=== PATIENT | female | born 1945 | race Hispanic/Latino ===

== ENCOUNTER 2018-08-25 09:30 | Outpatient (CLI) | payer MEDICARE ==
[2018-08-25 09:59] LABS: Estimated GFR-MDRD - POC Greater than 90
[2018-08-25] MEDS ORDERED: ISOVUE-370 76%-LOCM 1 ML ONE (10:43)
--- NOTE | 2018-08-25 11:47 | CT ---
CT ABDOMEN AND PELVIS WITH ORAL AND IV CONTRAST: Date: 08/25/18 HISTORY: Cirrhosis of the liver, left lower quadrant pain, epigastric pain. COMPARISON: 08/09/14. FINDINGS: The lung bases are unremarkable. Nodular contour of the liver consistent with cirrhosis is again seen . No focal mass or abnormal biliary ductal dilatation is noted. A small recanalized periumbilical vei n is again seen. There is decreased attenuation of the liver compared to the spleen consistent with f atty infiltration. No calcified gallstones are seen. The spleen measures 14.5 cm in length. The pancr eas, adrenal glands, and kidneys appear normal. No free air or lymphadenopathy is seen. A tiny amount of free fluid is seen in the pelvis. Uterus is present. The small bowel loops are not abnormally dilated. There are vascular calcifications without evidence of aneurysmal dilatation of the abdominal aorta. There are degenerative changes I the spine. There ar e small, fat-containing inguinal hernia bilaterally. A calcified uterine fibroid is again seen. IMPRESSION: 1. Cirrhosis of the liver with fatty infiltration. No hepatic mass. 2. Splenomegaly. 3. Uterine fibroid. POS: [facility]
== END 2018-08-25 09:31 | disposition home or self-care (01) ==
LOC: BICCT 09:30
PROVIDERS: ATTEND Physician Assistant Medical
DX: K74.60 Unspecified cirrhosis of liver (principal); R10.32 Left lower quadrant pain; R16.1 Splenomegaly, not elsewhere classified; D25.9 Leiomyoma of uterus, unspecified
CPT/HCPCS: 74177; 82565; Q9966

== ENCOUNTER 2022-03-27 05:19 | Observation (INO) | payer MEDICARE, OTHER ==
[2022-03-27] MEDS ORDERED: Oxymetazoline HCl 0.05% (30 ML BOT) ONE (05:46)
[2022-03-27 06:25] LABS: ALT (SGPT) 32 U/L (8-55); AST (SGOT) 38 U/L (5-34); Albumin 3.3 g/dL (3.4-4.8); Alkaline Phosphatase 79 U/L (40-110); Anion Gap 16 mmol/L (10-20); BUN (Urea Nitrogen) 12 mg/dL (9.8-20.1); Bilirubin, Total 1.4 mg/dL (0.2-1.2); Calc. Creatinine Clearance 0 mL/min (70-130); Calcium 8.9 mg/dL (7.8-10.44); Carbon Dioxide 23 mmol/L (23-31); Chloride 102 mmol/L (98-107); Estimated GFR 89; Globulin 3.5 g/dL (2.4-3.5); Glucose 192 mg/dL (83-110); Potassium 4.1 mmol/L (3.5-5.1); Protein, Total 6.8 g/dL (5.8-8.1); Sodium 137 mmol/L (136-145)
[2022-03-27 07:25] LABS: INR-International Normal Ratio 1.1; PTT 24.3 sec (22.9-36.1); Prothrombin Time 14.5 sec (12.0-14.7)
[2022-03-27 07:56] LABS: #Lymphocytes 1.1 thou/uL (1.20-3.40); #Monocytes 0.7 thou/uL (0.11-0.59); #Neutrophils 3.6 thou/uL (1.40-6.50); %Basophils 0.5 % (0.0-1.0); %Eosinophils 0.8 % (0.0-10.0); %Lymphocytes 19.7 % (21.0-51.0); %Monocytes 12.2 % (0.0-10.0); %Neutrophils 66.9 % (42.0-75.0); Hemoglobin 10.8 g/dL (12.0-16.0); Mean Corpuscular HGB CONC 35.2 g/dL (32.0-36.0); Mean Corpuscular Volume 88.2 fl (78.0-98.0); RBC Distribution Width 12.9 % (11.5-14.5); Red Blood Cell (RBC) Count 3.47 mill/uL (4.20-5.40); White Blood Cell (WBC) Count 5.4 10x3/uL (4.8-10.8)
[2022-03-27 08:21] LABS: Mean Platelet Volume 10.7 fL (7.4-10.4); Platelet Count 15 10x3/uL (130-400); Platelet Morphology Comment Appears Decreased; RBC Morphology Normal; Reflex for Review?? YES
[2022-03-27 10:30] LABS: Hemoglobin 10.9 g/dL (12.0-16.0); Mean Corpuscular HGB CONC 35.3 g/dL (32.0-36.0); Mean Corpuscular Hemoglobin 31.2 pg (27.0-31.0); Mean Corpuscular Volume 88.3 fl (78.0-98.0); Mean Platelet Volume 10.9 fL (7.4-10.4); Platelet Count 19 10x3/uL (130-400); RBC Distribution Width 12.9 % (11.5-14.5); Red Blood Cell (RBC) Count 3.49 mill/uL (4.20-5.40); White Blood Cell (WBC) Count 5.4 10x3/uL (4.8-10.8)
[2022-03-27 10:34] LABS: #Lymphocytes 1.1 thou/uL (1.20-3.40); #Monocytes 0.6 thou/uL (0.11-0.59); #Neutrophils 3.7 thou/uL (1.40-6.50); %Basophils 0.2 % (0.0-1.0); %Eosinophils 0.8 % (0.0-10.0); %Lymphocytes 20.9 % (21.0-51.0); %Monocytes 10.8 % (0.0-10.0); %Neutrophils 67.2 % (42.0-75.0); Platelet Morphology Comment Appears Adequate; RBC Morphology Normal
[2022-03-27] MEDS ORDERED: HumaLOG 300 UNITS/3 ML VIAL SC PRN ×2 (11:38)
[2022-03-27] MEDS ORDERED: Dextrose 50% Abboject 50 ML SYRINGE SLOW IVP PRN (11:38)
[2022-03-27] MEDS ORDERED: Dextrose 5% in Water 1,000 ML IV PRN (11:38)
[2022-03-27] MEDS ORDERED: Ondansetron PF 4 MG/2 ML Vial IVP PRN (11:41)
[2022-03-27] MEDS ORDERED: Acetaminophen 325 MG TAB PO PRN (11:41)
[2022-03-27] MEDS ORDERED: Ondansetron ODT 4 MG TAB PO PRN (11:41)
[2022-03-27 12:52] LABS: #Lymphocytes 1.1 thou/uL (1.20-3.40); #Monocytes 0.7 thou/uL (0.11-0.59); #Neutrophils 3.7 thou/uL (1.40-6.50); %Basophils 0.1 % (0.0-1.0); %Eosinophils 0.7 % (0.0-10.0); %Lymphocytes 20.6 % (21.0-51.0); %Neutrophils 66.6 % (42.0-75.0); Hemoglobin 10.9 g/dL (12.0-16.0); Mean Corpuscular HGB CONC 34.5 g/dL (32.0-36.0); Mean Corpuscular Hemoglobin 30.6 pg (27.0-31.0); Mean Corpuscular Volume 88.6 fl (78.0-98.0); Platelet Count 19 10x3/uL (130-400); RBC Distribution Width 13.1 % (11.5-14.5); Red Blood Cell (RBC) Count 3.55 mill/uL (4.20-5.40); White Blood Cell (WBC) Count 5.5 10x3/uL (4.8-10.8)
[2022-03-27 13:25] VITALS: BMI 25.0
[2022-03-28 06:25] LABS: Hemoglobin 10.4 g/dL (12.0-16.0); Mean Corpuscular HGB CONC 34.8 g/dL (32.0-36.0); Mean Corpuscular Hemoglobin 30.7 pg (27.0-31.0); Mean Corpuscular Volume 88.3 fl (78.0-98.0); Mean Platelet Volume 10.1 fL (7.4-10.4); Platelet Count 36 10x3/uL (130-400); RBC Distribution Width 12.7 % (11.5-14.5); White Blood Cell (WBC) Count 4.8 10x3/uL (4.8-10.8)
[2022-03-28 06:27] LABS: Anion Gap 12 mmol/L (10-20); BUN (Urea Nitrogen) 10 mg/dL (9.8-20.1); Calc. Creatinine Clearance 67 mL/min (70-130); Carbon Dioxide 29 mmol/L (23-31); Chloride 104 mmol/L (98-107); Estimated GFR 88; Glucose 123 mg/dL (83-110); Potassium 3.7 mmol/L (3.5-5.1); Sodium 141 mmol/L (136-145)
[2022-03-28 06:43] LABS: Band 1 % (5-11); Lymphocytes 25 % (21-51); MDiff Complete? YES; Monocytes 16 % (0-10); Neutrophil 58 % (42-75); Platelet Morphology Comment Appears Decreased
[2022-03-28 12:26] VITALS: BP 125/75; TEMP 97.6
== END 2022-03-28 16:55 | disposition home or self-care (01) ==
LOC: ERS 05:19 → ERHOLD 11:24 → INTOOBSV 11:24 → MSONC 18:11
PROVIDERS: ADMIT Internal Medicine; ATTEND Internal Medicine
DX: D69.6 Thrombocytopenia, unspecified (principal); C56.9 Malignant neoplasm of unspecified ovary; D63.0 Anemia in neoplastic disease; E11.9 Type 2 diabetes mellitus without complications; K76.0 Fatty (change of) liver, not elsewhere classified; K74.60 Unspecified cirrhosis of liver; R04.0 Epistaxis; Z87.891 Personal history of nicotine dependence; Z79.84 Long term (current) use of oral hypoglycemic drugs; Z20.822 Contact with and (suspected) exposure to COVID-19
CPT/HCPCS: 36430; 80048; 80053; 82962 ×2; 85025 ×3; 85610; 85730; 86850; 86900; 86901; 99284; P9035; U0003; U0005; 36415; 36416; 85060; G0378; J1642

== ENCOUNTER 2023-04-07 11:24 | Day surgery (SDC) | payer OTHER ==
[2023-04-07 11:40] LABS: INR-International Normal Ratio 1.2; PTT 29.9 sec (22.9-36.1)
[2023-04-07] MEDS ORDERED: Lidocaine 1% PF 5 ML VIAL ONE (12:43)
[2023-04-07 14:00] VITALS: BP 138/74
== END 2023-04-07 13:35 | disposition home or self-care (01) ==
LOC: ULT 11:24
PROVIDERS: ATTEND Internal Medicine Hematology & Oncology
PROC: 0W9G3ZZ Drainage of Peritoneal Cavity, Percutaneous Approach (ICD-10-PCS; principal; 2023-04-07)
DX: R18.8 Other ascites (principal); C56.2 Malignant neoplasm of left ovary; Z90.710 Acquired absence of both cervix and uterus; Z79.899 Other long term (current) drug therapy
CPT/HCPCS: 49083; 85610; 85730

== ENCOUNTER 2023-04-12 15:17 | Observation (INO) | payer OTHER ==
[2023-04-12 16:48] LABS: #Eosinphils 0.1 thou/uL (0.0-0.7); #Monocytes 1.1 thou/uL (0.11-0.59); #Neutrophils 5.5 thou/uL (1.40-6.50); %Basophils 0.3 % (0.0-1.0); %Eosinophils 0.9 % (0.0-10.0); %Lymphocytes 14.9 % (21.0-51.0); %Monocytes 13.3 % (0.0-10.0); %Neutrophils 69.8 % (42.0-75.0); Hematocrit 33.9 % (36.0-47.0); Hemoglobin 10.7 g/dL (12.0-16.0); Mean Corpuscular HGB CONC 31.6 g/dL (32.0-36.0); Mean Corpuscular Hemoglobin 28.1 pg (27.0-31.0); Mean Platelet Volume 12.3 fL (7.4-10.4); Platelet Count 156 10x3/uL (130-400); RBC Distribution Width 17.4 % (11.5-14.5); Red Blood Cell (RBC) Count 3.81 mill/uL (4.20-5.40); White Blood Cell (WBC) Count 7.9 10x3/uL (4.8-10.8)
[2023-04-12 17:18] LABS: ALT (SGPT) 11 U/L (8-55); AST (SGOT) 17 U/L (5-34); Albumin 3.4 g/dL (3.4-4.8); Alkaline Phosphatase 54 U/L (40-110); Anion Gap 18 mmol/L (10-20); BUN (Urea Nitrogen) 15 mg/dL (9.8-20.1); Calc. Creatinine Clearance 0 mL/min (70-130); Calcium 8.5 mg/dL (7.8-10.44); Carbon Dioxide 25 mmol/L (23-31); Chloride 99 mmol/L (98-107); Estimated GFR 77; Globulin 3.2 g/dL (2.4-3.5); Glucose 129 mg/dL (83-110); Lipase 47 U/L (8-78); Potassium 3.6 mmol/L (3.5-5.1); Protein, Total 6.6 g/dL (5.8-8.1); Sodium 138 mmol/L (136-145)
[2023-04-12 20:26] LABS: INR-International Normal Ratio 1.1; PTT 29.9 sec (22.9-36.1); Prothrombin Time 14.6 sec (12.0-14.7)
[2023-04-12 20:52] LABS: Troponin I Less than 0.010 ng/mL (< 0.028)
[2023-04-12] MEDS ORDERED: Calcium Carbonate 500 MG ChewTAB PO PRN (21:45)
[2023-04-12] MEDS ORDERED: Acetaminophen 325 MG TAB PO PRN (21:45)
[2023-04-12] MEDS ORDERED: Ondansetron ODT 4 MG TAB PO PRN (21:45)
[2023-04-12] MEDS ORDERED: Senokot S 8.6-50 MG TAB PO PRN (21:45)
[2023-04-13 04:23] LABS: #Eosinphils 0.1 thou/uL (0.0-0.7); #Monocytes 0.8 thou/uL (0.11-0.59); #Neutrophils 4.5 thou/uL (1.40-6.50); %Basophils 0.2 % (0.0-1.0); %Eosinophils 1.5 % (0.0-10.0); %Lymphocytes 15.6 % (21.0-51.0); %Neutrophils 69.1 % (42.0-75.0); Hematocrit 29.9 % (36.0-47.0); Hemoglobin 9.5 g/dL (12.0-16.0); Mean Corpuscular HGB CONC 31.8 g/dL (32.0-36.0); Mean Corpuscular Hemoglobin 28.3 pg (27.0-31.0); Mean Platelet Volume 11.7 fL (7.4-10.4); Platelet Count 139 10x3/uL (130-400); RBC Distribution Width 17.3 % (11.5-14.5); Red Blood Cell (RBC) Count 3.36 mill/uL (4.20-5.40); White Blood Cell (WBC) Count 6.5 10x3/uL (4.8-10.8)
[2023-04-13 05:53] LABS: Chloride 103 mmol/L (98-107); Potassium 3.8 mmol/L (3.5-5.1); Sodium 138 mmol/L (136-145)
[2023-04-13 05:54] LABS: Globulin 2.9 g/dL (2.4-3.5); Glucose 138 mg/dL (83-110); Protein, Total 5.9 g/dL (5.8-8.1)
[2023-04-13 05:56] LABS: Anion Gap 15 mmol/L (10-20); Carbon Dioxide 24 mmol/L (23-31)
[2023-04-13 05:57] LABS: Alkaline Phosphatase 42 U/L (40-110); Calc. Creatinine Clearance 67 mL/min (70-130); Estimated GFR 86
[2023-04-13 05:58] LABS: BUN (Urea Nitrogen) 16 mg/dL (9.8-20.1)
[2023-04-13 05:59] LABS: AST (SGOT) 16 U/L (5-34)
[2023-04-13 06:00] LABS: ALT (SGPT) 10 U/L (8-55)
[2023-04-13] MEDS ORDERED: metFORMIN 500 MG TAB PO SCH (08:00)
[2023-04-13] MEDS ORDERED: Empagliflozin 25 MG TAB PO SCH (09:00)
[2023-04-13] MEDS ORDERED: Alogliptin 25 MG TAB PO SCH ×2 (09:00)
[2023-04-13] MEDS ORDERED: Famotidine 20 MG TAB PO SCH (09:00)
[2023-04-13] MEDS ORDERED: Semaglutide [Rybelsus] 3 MG Tab PO SCH (09:00)
[2023-04-13 09:22] VITALS: BP 117/55; TEMP 98.2
[2023-04-13] MEDS ORDERED: Lidocaine 1% PF 5 ML VIAL ONE (10:37)
[2023-04-14 17:09] LABS: RBC Count-Automated (BF) 27806 /cu.mm; WBC/Nucleated-Auto (BF) 359 /cu.mm
[2023-04-14 17:16] LABS: Body Fluid Source Paracentesis Fluid; Clarity Cloudy/Turbid (Clear); Tube # EDTA
[2023-04-14 17:17] LABS: BF Color Pink
[2023-04-14 17:33] LABS: BF Segmented Neutrophils 13 %; Cell Count Non Hematic 50 %; Lymphocytes 37 %
[2023-04-14 17:34] LABS: Fluid, Glucose 150 mg/dL (Not Available); Fluid, LDH 169 U/L (Not Available)
== END 2023-04-13 15:17 | disposition home or self-care (01) ==
LOC: ERS 15:17 → ERHOLD 20:47 → T4-A 04-13 08:08
PROVIDERS: ADMIT Student in an Organized Health Care Education/Training Program; ATTEND Internal Medicine
PROC: 0W9G30Z Drainage of Peritoneal Cavity with Drainage Device, Percutaneous Approach (ICD-10-PCS; principal; 2023-04-12)
DX: K74.60 Unspecified cirrhosis of liver (principal); R18.8 Other ascites; E11.9 Type 2 diabetes mellitus without complications; K80.20 Calculus of gallbladder without cholecystitis without obstruction; C56.9 Malignant neoplasm of unspecified ovary; Z79.84 Long term (current) use of oral hypoglycemic drugs; Z79.899 Other long term (current) drug therapy
CPT/HCPCS: 49083; 76705; 80053 ×2; 82945; 83615; 83690; 84157; 84484; 85025 ×2; 85610; 85730; 87070; 87205; 89051; 93005; 99285; G0378 ×3; 36415; 85060

== ENCOUNTER → 2023-09-16 | Day surgery (SDC) | payer OTHER | LOC: ULT 12:40 | PROVIDERS: ATTEND Internal Medicine Hematology & Oncology | DX: R18.8 Other ascites (principal); C56.2 Malignant neoplasm of left ovary; E11.9 Type 2 diabetes mellitus without complications; Z79.899 Other long term (current) drug therapy; Z79.84 Long term (current) use of oral hypoglycemic drugs; Z90.710 Acquired absence of both cervix and uterus | CPT/HCPCS: 76705 ==

== ENCOUNTER → 2024-02-17 | Day surgery (SDC) | payer OTHER ==
[~2024-02-17] MED LIST: Lidocaine 1% PF 5 ML VIAL ONE; Sodium Bicarbonate 2.5 MEQ/5 ML SDV ONE
[2024-02-17 13:59] LABS: INR-International Normal Ratio 1.2; PTT 30.8 sec (22.9-36.1); Prothrombin Time 14.9 sec (12.0-14.7)
[2024-02-17 14:05] LABS: #Basophils Less than 0.03 10x3/uL (0.0-0.2); %Basophils 0.4 % (0.0-1.0); %Eosinophils 1.9 % (0.0-10.0); %Lymphocytes 20.3 % (21.0-51.0); %Monocytes 13.8 % (0.0-10.0); %Neutrophils 62.5 % (42.0-75.0); Hemoglobin 12.3 g/dL (12.0-16.0); Mean Corpuscular HGB CONC 33.2 g/dL (32.0-36.0); Mean Corpuscular Hemoglobin 30.8 pg (27.0-31.0); Mean Corpuscular Volume 92.5 fL (78.0-98.0); Mean Platelet Volume 12.2 fL (7.4-10.4); Platelet Count 126 10x3/uL (130-400); RBC Distribution Width 17.2 % (11.5-14.5)
== END ==
LOC: ULT 13:32
PROVIDERS: ATTEND Internal Medicine Hematology & Oncology
PROC: 0W9G30Z Drainage of Peritoneal Cavity with Drainage Device, Percutaneous Approach (ICD-10-PCS; principal; 2024-02-17)
DX: R18.8 Other ascites (principal); C56.2 Malignant neoplasm of left ovary; D69.6 Thrombocytopenia, unspecified; Z79.899 Other long term (current) drug therapy; E11.9 Type 2 diabetes mellitus without complications; K74.60 Unspecified cirrhosis of liver; Z90.710 Acquired absence of both cervix and uterus; Z87.891 Personal history of nicotine dependence; Z79.84 Long term (current) use of oral hypoglycemic drugs
CPT/HCPCS: 36415; 49083; 85025; 85610; 85730

== ENCOUNTER 2024-02-29 14:04 | Day surgery (SDC) | payer OTHER ==
[2024-02-29] MEDS ORDERED: Lidocaine 1% PF 5 ML VIAL ONE (14:46)
[2024-02-29 15:24] VITALS: TEMP 97.9
== END 2024-02-29 16:20 | disposition home or self-care (01) ==
LOC: ULT 14:04
PROVIDERS: ATTEND Internal Medicine Hematology & Oncology
PROC: 0W9G30Z Drainage of Peritoneal Cavity with Drainage Device, Percutaneous Approach (ICD-10-PCS; principal; 2024-02-29)
DX: R18.8 Other ascites (principal); K76.0 Fatty (change of) liver, not elsewhere classified; C56.2 Malignant neoplasm of left ovary; E11.9 Type 2 diabetes mellitus without complications; D64.9 Anemia, unspecified; Z79.899 Other long term (current) drug therapy
CPT/HCPCS: 49083

== ENCOUNTER 2024-03-29 08:30 | Emergency (ER) | payer OTHER ==
[2024-03-29 10:02] LABS: INR-International Normal Ratio 1.1; PTT 30.4 sec (22.9-36.1); Prothrombin Time 14.4 sec (12.0-14.7)
[2024-03-29 10:03] LABS: ALT (SGPT) 22 U/L (8-55); AST (SGOT) 27 U/L (5-34); Albumin 3.1 g/dL (3.4-4.8); Alkaline Phosphatase 72 U/L (40-110); Anion Gap 12 mmol/L (10-20); BUN (Urea Nitrogen) 16 mg/dL (9.8-20.1); Bilirubin, Total 0.8 mg/dL (0.2-1.2); Calc. Creatinine Clearance 0 mL/min (70-130); Calcium 8.7 mg/dL (7.8-10.44); Carbon Dioxide 26 mmol/L (23-31); Chloride 104 mmol/L (98-107); Estimated GFR 91; Globulin 3.5 g/dL (2.4-3.5); Glucose 151 mg/dL (83-110); Potassium 4.1 mmol/L (3.5-5.1); Protein, Total 6.6 g/dL (5.8-8.1); Sodium 138 mmol/L (136-145)
[2024-03-29 10:05] LABS: #Basophils Less than 0.03 10x3/uL (0.0-0.2); %Basophils 0.3 % (0.0-1.0); %Lymphocytes 18.9 % (21.0-51.0); %Monocytes 15.3 % (0.0-10.0); %Neutrophils 62.7 % (42.0-75.0); Hematocrit 32.7 % (36.0-47.0); Hemoglobin 10.6 g/dL (12.0-16.0); Mean Corpuscular HGB CONC 32.4 g/dL (32.0-36.0); Mean Corpuscular Hemoglobin 29.4 pg (27.0-31.0); Mean Corpuscular Volume 90.8 fL (78.0-98.0); Mean Platelet Volume 12.1 fL (7.4-10.4); Platelet Count 81 10x3/uL (130-400); RBC Distribution Width 18.6 % (11.5-14.5)
== END 2024-03-29 13:46 | disposition home or self-care (01) ==
LOC: ERS 08:30
DX: R18.8 Other ascites (principal); R06.02 Shortness of breath; E11.9 Type 2 diabetes mellitus without complications; Z55.6 Problems related to health literacy
CPT/HCPCS: 36415; 49083; 80053; 85025; 85610; 85730

== ENCOUNTER 2024-04-05 13:09 | Day surgery (SDC) | payer OTHER ==
[2024-04-05] MEDS ORDERED: Sodium Bicarbonate 2.5 MEQ/5 ML SDV ONE (13:36)
[2024-04-05] MEDS ORDERED: Lidocaine 1% PF 5 ML VIAL ONE (13:36)
== END 2024-04-05 15:00 | disposition home or self-care (01) ==
LOC: ULT 13:09
PROVIDERS: ATTEND Internal Medicine Hematology & Oncology
PROC: 0W9G30Z Drainage of Peritoneal Cavity with Drainage Device, Percutaneous Approach (ICD-10-PCS; principal; 2024-04-05)
DX: C56.2 Malignant neoplasm of left ovary (principal); R18.8 Other ascites
CPT/HCPCS: 49083

== ENCOUNTER 2024-04-19 09:42 | Emergency (ER) | payer OTHER ==
[2024-04-19 11:19] LABS: #Basophils Less than 0.03 10x3/uL (0.0-0.2); %Basophils 0.3 % (0.0-1.0); %Lymphocytes 21.6 % (21.0-51.0); %Monocytes 15.8 % (0.0-10.0); Hemoglobin 11.3 g/dL (12.0-16.0); Mean Corpuscular HGB CONC 33.2 g/dL (32.0-36.0); Mean Corpuscular Hemoglobin 30.1 pg (27.0-31.0); Mean Corpuscular Volume 90.4 fL (78.0-98.0); Platelet Count 72 10x3/uL (130-400); RBC Distribution Width 20.5 % (11.5-14.5); Red Blood Cell (RBC) Count 3.76 mill/uL (4.20-5.40)
[2024-04-19 11:29] LABS: INR-International Normal Ratio 1.1; Prothrombin Time 14.6 sec (12.0-14.7)
[2024-04-19 11:30] LABS: PTT 38.8 sec (22.9-36.1)
[2024-04-19 12:03] LABS: ALT (SGPT) 14 U/L (Less than 34); AST (SGOT) 29 U/L (11-34); Alkaline Phosphatase 54 U/L (40-110); Anion Gap 13 mmol/L (10-20); BUN (Urea Nitrogen) 12 mg/dL (9.8-20.1); Bilirubin, Total 1.2 mg/dL (0.3-1.2); Calc. Creatinine Clearance 0 mL/min (70-130); Calcium 8.5 mg/dL (7.8-10.44); Carbon Dioxide 28 mmol/L (23-31); Chloride 103 mmol/L (98-107); Estimated GFR 92; Globulin 3.4 g/dL (2.4-3.5); Glucose 164 mg/dL (83-110); Lipase 28 U/L (8-78); Potassium 3.9 mmol/L (3.5-5.1); Protein, Total 6.4 g/dL (5.8-8.1); Sodium 140 mmol/L (136-145)
[2024-04-19 12:16] LABS: Troponin I Less than 0.010 ng/mL (< 0.028)
[2024-04-19 15:20] LABS: Bacteria/HPF None Seen HPF (None Seen); Bilirubin Negative (Negative); Blood, Urine Negative (Negative); CAUTI Indications for Culture Dysuria,urgency,freq; Clarity Clear (Clear); Glucose, Urine (Dipstick) Normal (Negative); Ketone, Urine Negative (Negative); Leukocyte Negative Leu/uL (Negative); Nitrite Negative (Negative); Protein, Urine (Dipstick) Negative (Neg-Trace); RBC/HPF 0-3 HPF (0-3); Specific Gravity, Urine 1.042 (1.002-1.036); Squamous Epithelial None Seen HPF (0-3); Urobilinogen Normal mg/dL (Less than 2); WBC/HPF 0-3 HPF (0-3); pH, Urine 7.5 (5.0-9.0)
[2024-04-19 15:24] LABS: Urine Culture Reflex No No
[2024-04-19 15:29] LABS: RBC Count-Automated (BF) 41759 /cu.mm; WBC/Nucleated-Auto (BF) 124 /cu.mm
[2024-04-19 15:37] LABS: Body Fluid Source Ascites Body Fluid; Clarity Cloudy/Turbid (Clear); Tube # EDTA
[2024-04-19 15:38] LABS: BF Color Red
[2024-04-19 16:07] LABS: BF Segmented Neutrophils 10 %; Cell Count Non Hematic 46 %; Lymphocytes 44 %
== END 2024-04-19 15:43 | disposition home or self-care (01) ==
LOC: ERS 09:42
DX: R18.8 Other ascites (principal); D69.6 Thrombocytopenia, unspecified; E11.9 Type 2 diabetes mellitus without complications; Z75.8 Other problems related to medical facilities and other health care; Z85.43 Personal history of malignant neoplasm of ovary; Z79.84 Long term (current) use of oral hypoglycemic drugs
CPT/HCPCS: 49083; 71045; 74177; 80053; 81001; 82150; 82945; 83690; 84484; 85025; 85060; 85610; 85730; 89051; 93005

== ENCOUNTER 2024-05-04 08:54 | Day surgery (SDC) | payer OTHER | END 2024-05-04 10:10 | disposition home or self-care (01) | LOC: ULT 08:54 | PROVIDERS: ATTEND Internal Medicine Hematology & Oncology | PROC: 0W9G30Z Drainage of Peritoneal Cavity with Drainage Device, Percutaneous Approach (ICD-10-PCS; principal; 2024-05-04) | DX: R18.8 Other ascites (principal); E11.9 Type 2 diabetes mellitus without complications; D64.9 Anemia, unspecified; K76.0 Fatty (change of) liver, not elsewhere classified; Z90.710 Acquired absence of both cervix and uterus; Z79.899 Other long term (current) drug therapy | CPT/HCPCS: 49083 ==

== ENCOUNTER 2025-03-01 14:22 | Outpatient (CLI) | payer OTHER | END 2025-03-01 14:23 | disposition home or self-care (01) | LOC: BICRAD 14:22 | PROVIDERS: ATTEND Internal Medicine Hematology & Oncology | DX: C56.2 Malignant neoplasm of left ovary (principal) | CPT/HCPCS: 74018 ==